=== PATIENT | male | born 1975 | race Two or more races ===

== ENCOUNTER 2023-03-13 04:34 | Emergency (ER) | payer BC ==
[~2023-03-13] VITALS: Ht 175.3 cm; Wt 74.8 kg
[2023-03-13 06:46] LABS: BASOPHILS % 0.8 % (0.0-2.0); EOSINOPHILS % 1.6 % (0.0-5.0); HEMOGLOBIN. 14.7 g/dL (14.0-18.0); MEAN CORPUSCULAR HEMOGLOBIN 32.7 pg (28.0-32.0); MEAN PLATELET VOLUME 7.4 fl (7.4-10.4); MONOCYTES % 6.4 % (2.0-8.0); NEUTROPHILS % 68.2 % (40.0-76.0); PLATELET 315 x1000/uL (130-400); RED CELL DISTRIBUTION WIDTH 12.7 % (11.6-14.6)
[2023-03-13 06:56] LABS: CHLORIDE 111 mEq/L (98-107)
[2023-03-13 07:11] LABS: T4 FREE 1.11 ng/dL (0.76-1.46)
[2023-03-13 07:30] LABS: ETHANOL BLOOD < 10 mg/dL
[2023-03-13] MEDS ORDERED: CALCIUM GLUCONATE 100MG/ML 10ML VIAL IV NR (11:30)
[2023-03-13 11:58] VITALS: BP 139/76
== END 2023-03-13 11:58 | disposition home or self-care (01) ==
LOC: ER 04:34
DX: R00.2 Palpitations (principal)
CPT/HCPCS: 36415; 71045; 80053; 80320; 83880; 84439; 84443; 84480; 84481; 84484; 85025; 93005; 96374; 99285; J0610; G0480